=== PATIENT | male | born 1955 | race African-American/Black ===

== ENCOUNTER 2016-04-02 19:02 | Emergency (ER) | payer OTHER ==
[~2016-04-02] VITALS: Wt 86.0 kg
[~2016-04-02 19:02] MED LIST: SER IH
[2016-04-02] MEDS ORDERED: HYDROCODONE/APAP (10/325) TAB PO ONE (22:00)
[2016-04-02] MEDS ORDERED: LIDOCAINE 1% (MDV) 20 ML INJ SC ONE (22:00)
--- NOTE | 2016-04-02 22:04 | ERD ---
ER Documentation Chief Complaint Date/Time DATE: 04/02/16 TIME: 22:01 Chief Complaint abscess to upper back 3 days HPI 60-year-old male presents here in emergency department for complaints of upper back redness and swelling for 3 days. Patient states that it started as a pimple , red and swollen. patient's complaining of pain on affected area, throbbing pain, 6/10 scale, worse upon touching the area. patient did not take any medications to help with symptoms. Patient denies any fever or chills. ROS All systems reviewed and are negative except as per history of present illness. Medications Home Meds Reported Medications Salmeterol Xinafoate* (Serevent Diskus*) 50 Mcg/Disk W/Dev Disk.w.dev, 50 MCG IH DAILY 01/10/11 Allergies Allergies: Coded Allergies: No Known Allergies (Verified Allergy, 01/10/11) PMhx/Soc History of Surgery: No Anesthesia Reaction: No Hx Neurological Disorder: No Hx Respiratory Disorders: Yes (ASTHMA) Hx Cardiac Disorders: No Hx Psychiatric Problems: No Hx Miscellaneous Medical Probl: No (NOT STATED) Hx Alcohol Use: No Hx Substance Use: No Hx Tobacco Use: No FmHx Family History: No coronary disease, No diabetes, No other Physical Exam Vitals Vital Signs Date Time Temp Pulse Resp B/P Pulse Ox O2 Delivery O2 Flow Rate FiO2 04/02/16 19:05 98.6 68 18 156/86 98 Physical Exam GENERAL: The patient is well developed and appropriate for usual state of health, in no apparent distress. CHEST: Clear to auscultation bilaterally. There are no rales, wheezes or rhonchi. HEART: Regular rate and rhythm. No murmurs, clicks, rubs or gallops. No S3 or S4. ABDOMEN: Soft, nontender and nondistended. Good bowel sounds. No rebound or guarding. No gross peritonitis. No gross organomegaly or masses. No Frankel sign or McBurney point tenderness. BACK: No midline or flank tenderness. EXTREMITIES: Equal pulses bilaterally. There is no peripheral clubbing, cyanosis or edema. No focal swelling or erythema. Full range of motion. Grossly neurovascularly intact. NEURO: Alert and oriented. Cranial nerves 2-12 intact. Motor strength in all 4 extremities with 5/5 strength. Sensation grossly intact. Normal speech and gait. SKIN: Noted 4 cm diameter erythematous indurated area on the upper back, tender on palpation. There is no apparent ecchymosis or petechia. The skin is warm and dry. HEMATOLOGIC AND LYMPHATIC: There is no evidence of excessive bruising or lymphedema. No gross cervical, axillary, or inguinal lymphadenopathy. Results 24 hrs Current Medications Medications (Trade) Dose Ordered Sig/Shannan Route PRN Reason Start Time Stop Time Status Last Admin Dose Admin Lidocaine (Xylocaine 1% (Mdv) 20 ml) 4 ml ONCE ONCE SC 04/02/16 22:00 04/02/16 22:01 DC 04/02/16 22:03 Acetaminophen/ Hydrocodone Bitart (Saltese (10/325)) 1 tab ONCE ONCE PO 04/02/16 22:00 04/02/16 22:01 DC 04/02/16 22:02 Patient was given medication for pain here in emergency department, after treatment, patient verbalized feeling much better. Patient's pain is improved. Procedures/MDM Procedure Note: After obtaining informed consent, the wound was irrigated with 250 ml of normal saline and cleaned with diluted betadine. Using aseptic technique, 3 ml of 1% lidocaine was injected on the subcutaneous tissue of the abscess where the fluctuant area is at. After the anesthetic, a 2 cm incision was done in the middle of the fluctuant area of the abscess. Pustular discharge was drained from the abscess. The abscess wound was loosely packed with iodoform dressing. After the procedure, dry dressing was applied on the area. Patient tolerated procedure well. Medical decision making: Patient's symptoms of active consistent with a soft tissue abscess. This was drained without any difficulty. Patient tolerated procedure well. No symptoms of any necrosis. No symptoms of sepsis. Patient appears well and is hemodynamically stable. Patient does not have any fever. Patient was given for Bactrim, Keflex, ibuprofen and Saltese, to advised to return in 2 days for wound check, change of dressing. Patient was advised to return to emergency department for any worsening symptoms. Departure Diagnosis: Primary Impression: Soft tissue abscess Condition: Stable Patient Instructions: Abscess, Incision And Drainage Additional Instructions: Patient was given for Bactrim, Keflex, ibuprofen and Saltese, to advised to return in 2 days for wound check, change of dressing. Patient was advised to return to emergency department for any worsening symptoms. CARLOS ALBERTO ATKINSON NP Apr 02, 2016 22:03
[2016-04-02] MEDS ORDERED: IBUP-1542 PO (22:15)
[2016-04-02] MEDS ORDERED: BACTDS PO (22:15)
[2016-04-02] MEDS ORDERED: CEPH-443 PO (22:16)
[2016-04-02] MEDS ORDERED: HYDR-906 PO (22:16)
[2016-04-02 22:25] VITALS: BP 140/78; PULSE 79; RESP 18; TEMP 98.5
== END 2016-04-02 22:25 | disposition home or self-care (01) ==
LOC: FTE 19:02
DX: L02.212 Cutaneous abscess of back [any part, except buttock and flank] (principal); J45.909 Unspecified asthma, uncomplicated

== ENCOUNTER 2016-04-04 06:45 | Emergency (ER) | payer OTHER ==
[~2016-04-04] VITALS: Wt 93.5 kg
[~2016-04-04 06:45] MED LIST changes: +BACTDS PO; +CEPH-443 PO; +HYDR-906 PO; +IBUP-1542 PO
--- NOTE | 2016-04-04 11:51 | ERD ---
DATE OF SERVICE: HISTORY OF PRESENT ILLNESS: The patient is a 60-year-old male coming in for a wound check of an abs cess on his back. Patient seen here 2 days ago, had an I and D. He has been taking his antibiotics . He states that the pain seems to be improving. He has had no fevers. Denies any numbness or tin gling. He has had this before and he had an I and D done, but not for a long time. PAST MEDICAL HISTORY: Denies any other medical problems. ALLERGIES: DENIES ALLERGIES TO MEDICATION. PAST SURGICAL HISTORY: Denies. HOSPITALIZATIONS: Denies. REVIEW OF SYSTEMS: A 12-point review of systems was done. Refer to HPI for positives, all other sy stems negative. PHYSICAL EXAMINATION VITAL SIGNS: Temperature is 97.6, pulse 68, blood pressure 155/69, respiratory 17, O2 saturation 98 % on room air. Pain intensity 5/10. GENERAL: The patient is well-appearing, well-nourished, no acute distress. HEENT: Atraumatic. Conjunctivae are pink. Pupils equal, round, and reactive to light. There is no s cleral icterus. Tympanic membranes clear bilaterally. Oropharynx clear. No nystagmus or photophobia . CHEST: Clear to auscultation bilaterally. There are no rales, wheezes or rhonchi. HEART: Regular rate and rhythm. No murmurs, clicks, rubs or gallops. No S3 or S4. SKIN: There is a previous I and D site noted mid upper back between the shoulder blades. There is no surrounding lymphatic streaking. Mild tenderness to palpation, mild induration; however, no eryt neal. EMERGENCY ROOM COURSE: Site was cleaned. Previous packing was removed and new packing was placed. Patient tolerated procedure well. DIAGNOSIS: Abscess wound check, repacking. No complications. MEDICAL DECISION MAKING: I have low suspicion for worsening tracking infection. Patient's exam is not concerning and vital signs are stable. Patient is nontoxic. I did not feel there is indication for blood work or imaging at this time. DISCHARGE: The patient is discharged stable. Patient is told to return to 2 days for an additional packing. The patient was told if symptoms change or worsen, to return to the ER. All other questi ons answered at time of discharge. Discharge summary given at the time of departure. Patient under stood and complied with plan. Dictated By: ORI JUSTIN/DESTINI Conf#: [id number] DID#: [id number]
== END 2016-04-04 07:47 | disposition home or self-care (01) ==
LOC: FTE 06:45
DX: Z48.01 Encounter for change or removal of surgical wound dressing (principal); J45.909 Unspecified asthma, uncomplicated
CPT/HCPCS: 99281

== ENCOUNTER 2016-04-06 07:27 | Emergency (ER) | payer OTHER ==
[~2016-04-06] VITALS: Ht 193 cm; Wt 91.5 kg
[2016-04-06 07:40] VITALS: Ht 193 cm; Wt 91.5 kg
[2016-04-06] MEDS ORDERED: GLIP-95 PO (08:05)
[2016-04-06] MEDS ORDERED: MTF1000T PO (08:06)
--- NOTE | 2016-04-06 08:13 | ERD ---
ER Documentation Chief Complaint Date/Time DATE: 04/06/16 TIME: 08:09 Chief Complaint here for 2 days f/u I&D and nees med refill HPI This is a 60-year-old male who presents to the emergency Department today for a wound check of an abscess that he had drained a few days ago. Patient states he is also almost out of his diabetes medication and he is in between primary care physicians amended like a refill. States he is taking his antibiotics. Denies any fevers or chills. ROS All systems reviewed and are negative except as per history of present illness. Medications Home Meds Active Scripts Metformin* (Glucophage*) 1,000 Mg Tablet, 1000 MG PO BID, #60 TAB Prov:JAYSHREE MELENDEZ PA-C 04/06/16 Glipizide* (Glipizide*) 10 Mg Tablet, 10 MG PO AC BREAKFAST for 30 Days, TAB Take 2 tables twice a day before meals as directed Prov:JAYSHREE MELENDEZ PA-C 04/06/16 Hydrocodone/Acetaminophen ([place] 5-325 Tablet) 1 Each Tablet, 1 TAB PO Q6H Y for SEVERE PAIN LEVEL 7-10, #20 TAB Prov:CARLOS ALBERTO ATKINSON NP 04/02/16 Cephalexin* (Keflex*) 500 Mg Capsule, 500 MG PO QID for 10 Days, CAP Prov:CARLOS ALBERTO ATKINSON NP 04/02/16 Ibuprofen* (Motrin*) 600 Mg Tab, 600 MG PO Q6H Y for PAIN AND OR ELEVATED TEMP, #30 TAB Prov:CARLOS ALBERTO ATKINSON NP 04/02/16 Sulfamethoxazole-Trimethoprim* (Bactrim* DS) 800-160 Mg Tab, 1 TAB PO BID for 10 Days, TAB Prov:CARLOS ALBERTO ATKINSON NP 04/02/16 Reported Medications Salmeterol Xinafoate* (Serevent Diskus*) 50 Mcg/Disk W/Dev Disk.w.dev, 50 MCG IH DAILY 01/10/11 Allergies Allergies: Coded Allergies: No Known Allergies (Verified Allergy, 01/10/11) PMhx/Soc History of Surgery: No Anesthesia Reaction: No Hx Neurological Disorder: No Hx Respiratory Disorders: Yes (ASTHMA) Hx Cardiac Disorders: No Hx Psychiatric Problems: No Hx Miscellaneous Medical Probl: No (NOT STATED) Hx Alcohol Use: No Hx Substance Use: No Hx Tobacco Use: No Smoking Status: Never smoker Physical Exam Vitals Vital Signs Date Time Temp Pulse Resp B/P Pulse Ox O2 Delivery O2 Flow Rate FiO2 04/06/16 07:40 98.6 69 18 135/76 100 Physical Exam Const: No acute distress Head: Atraumatic Eyes: Normal Conjunctiva ENT: Normal External Ears, Nose and Mouth. Neck: Full range of motion..~ No meningismus. Resp: Clear to auscultation bilaterally Cardio: Regular rate and rhythm, no murmurs Abd: Soft, non tender, non distended. Normal bowel sounds Skin: Evidence of abscess on her back that is draining. No erythema or warmth. Evidence of cellulitis. Back: No midline or flank tenderness. Draining abscess as noted Neur: Awake and alert Psych: Normal Mood and Affect Procedures/MDM This 60-year-old male who presents to the emergency department today for wound check of an abscess that he had drained on April 02. The wound was packed at that time and patient was given a prescription for Bactrim and Keflex. Patient returned for a recheck on April 04 and the wound was repacked at that time. Today I have removed the packing and wound appears to have some slight drainage. Patient is afebrile and otherwise well-appearing. There is no erythema or warmth. I have low suspicion for sepsis, cellulitis or deep space tracking infection. Patient was instructed to continue taking his antibiotics as prescribed. He may continue taking the pain medications that he has. Patient was also requesting a refill on his metformin and glipizide as he is almost out and he indicated he is in between primary care physicians. I have given him 1 month supply for this. Patient is not complaining of any symptoms related to his diabetes. At this time the patient is stable for discharge and outpatient management. Patient should follow up with their PCP in the next 1-2 days. They may return to the emergency department sooner for any persistent or worsening of symptoms. Patient understood and agreed with the plan. Departure Diagnosis: Primary Impression: Medication refill Additional Impression: Encounter for wound re-check Condition: Fair Patient Instructions: Taking Medicine Safely, Wound Care Referrals: your PCP [facility] YOU HAVE RECEIVED A MEDICAL SCREENING EXAM AND THE RESULTS INDICATE THAT YOU DO NOT HAVE A CONDITION THAT REQUIRES URGENT TREATMENT IN THE EMERGENCY DEPARTMENT. FURTHER EVALUATION AND TREATMENT OF YOUR CONDITION CAN WAIT UNTIL YOU ARE SEEN IN YOUR DOCTORS OFFICE WITHIN THE NEXT 1-2 DAYS. IT IS YOUR RESPONSIBILITY TO MAKE AN APPOINTMENT FOR FOLOW-UP CARE. IF YOU HAVE A PRIMARY DOCTOR --you should call your primary doctor and schedule an appointment IF YOU DO NOT HAVE A PRIMARY DOCTOR YOU CAN CALL OUR PHYSICIAN REFERRAL HOTLINE AT IF YOU CAN NOT AFFORD TO SEE A PHYSICIAN YOU CAN CHOSE FROM THE FOLLOWING [facility] [address] [facility] [employer] [facility]. [facility] [address] [facility] [employer] [facility] [address] [facility] [facility] [address]. [facility] [address] [facility]. [facility] [address] Additional Instructions: Call your primary care doctor TOMORROW for an appointment during the next 1-2 days.See the doctor sooner or return here if your condition worsens before your appointment time. Keep wound clean Take your diabetes medications as prescribed and follow up with a primary care physician JAYSHREE MELENDEZ PA-C Apr 06, 2016 08:13
== END 2016-04-06 08:27 | disposition home or self-care (01) ==
LOC: FTE 07:27
DX: Z76.0 Encounter for issue of repeat prescription (principal); E11.9 Type 2 diabetes mellitus without complications; J45.909 Unspecified asthma, uncomplicated; Z79.84 Long term (current) use of oral hypoglycemic drugs
CPT/HCPCS: 99281